=== PATIENT | male | born 1975 | race Hispanic/Latino ===

== ENCOUNTER → 2024-02-01 | Outpatient (CLI) | payer OTHER ==
[2024-02-01 14:32] LABS: BASOPHILS # (AUTO) 0.03 K/uL (0.00-0.20); BASOPHILS % (AUTO) 0.5 % (0.0-5.0); EOSINOPHILS # (AUTO) 0.25 K/uL (0.00-0.70); EOSINOPHILS % (AUTO) 4.4 % (0.0-8.0); IMMATURE GRANULOCYTE ABSOLUTE 0.02 K/uL (0-1); LYMPHOCYTES # (AUTO) 1.8 K/uL (1.0-4.8); LYMPHOCYTES % (AUTO) 31.3 % (21.0-51.0); MEAN CORPUSCULAR HEMOGLOBIN 28.1 pg (27.0-33.0); MEAN CORPUSCULAR HGB CONC 32.6 g/dL (32.0-36.0); MEAN CORPUSCULAR VOLUME 86.2 fL (79-99); MONOCYTES # (AUTO) 0.4 K/uL (0.1-1.0); MONOCYTES % (AUTO) 7.2 % (3.0-13.0); NEUTROPHILS # (AUTO) 3.2 K/uL (1.8-7.7); NEUTROPHILS % (AUTO) 56.2 % (40.0-77.0); PLATELET COUNT (AUTO) 284 K/uL (130-400); RED BLOOD CELL COUNT(AUTO) 5.45 MIL/uL (4.50-6.20); RED CELL DISTRIBUTION WIDTH 13.2 % (11.0-15.5); WHITE BLOOD COUNT (AUTO) 5.7 K/uL (4.8-10.8)
[2024-02-01 14:49] LABS: INR 0.97 (0.85-1.15); PROTHROMBIN TIME 10.5 SEC (9.6-11.6)
[2024-02-01 14:50] LABS: PARTIAL THROMBOPLASTIN TIME 32.5 SEC (26.3-35.5)
[2024-02-01 15:04] LABS: ALBUMIN 3.8 g/dL (3.5-5.0); BILIRUBIN,TOTAL 0.9 mg/dL (0.2-1.0); CREATININE 1.2 mg/dL (0.5-1.3); POTASSIUM 4.4 mmol/L (3.5-5.1); TOTAL PROTEIN, SERUM 7.5 g/dL (6.0-8.3)
== END | disposition home or self-care (01) ==
LOC: LAB 13:52
PROVIDERS: ATTEND Internal Medicine
DX: C20 Malignant neoplasm of rectum (principal); R10.9 Unspecified abdominal pain
CPT/HCPCS: 36415; 80053; 82378; 85025; 85610; 85730

== ENCOUNTER → 2024-02-05 | Outpatient (CLI) | payer MEDICAID, OTHER ==
[~2024-02-05] MED LIST: IOHEXOL 350 MG/ML 100ML INFUS..BTL IV ONE
--- NOTE | 2024-02-05 10:38 | HMCIMG ---
CT CHEST/ABD/PELV W/CONRAST HISTORY: Rectal cancer COMPARISON: None TECHNIQUE: Multiple sequential axial images of the chest were obtained from the thoracic inlet through upper abdomen. Patient was given 100 cc of Omnipaque through intravenous route. FINDINGS: There is no evidence of pulmonary nodule or parenchymal disease. COPD changes are seen. No pleural effusion or pericardial effusion is seen. There is no evidence of pneumothorax. There are normal size mediastinal and hilar lymph nodes. The heart is not enlarged. Degenerative changes of the thoracolumbar spine are present. There is no evidence of adrenal nodule. IMPRESSION: 1. No evidence of pulmonary nodule or effusion is seen. CT CHEST/ABD/PELV W/CONRAST HISTORY: No additional history given. COMPARISON: None TECHNIQUE: Multiple sequential axial images of the abdomen and pelvis were obtained from the dome of the diaphragm through symphysis pubis. Patient was given contrast along with the CT chest study through intravenous route. Oral contrast was given. FINDINGS: Liver measures 16 cm. The liver, spleen, adrenal glands and pancreas are unremarkable. There is no evidence of hydronephrosis bilaterally. No evidence of renal stone is seen. Fecal material is seen in the colon. There are normal size retroperitoneal and mesenteric lymph nodes. No ascites is seen. No CT evidence of acute appendicitis is seen. No bowel obstruction is seen. Clinical correlation is recommended. There is left anterior rectal wall thickening measuring 12 mm may be related to neoplastic process. There is also rectosigmoid colon wall fullness. Pelvic sidewalls are symmetric bilaterally. Bladder is poorly distended. IMPRESSION: 1. There is left and anterior rectal wall thickening may be related to mass lesion and clinical correlation is recommended. There is also fullness noted of the rectosigmoid colon wall. There is no evidence of adenopathy or ascites. No bowel obstruction seen. CT was performed with one or more following dose reduction techniques: automated exposure control, adjustment of the mA and kv according to patient's size, or use of a iterative reconstruction technique.
== END | disposition home or self-care (01) ==
LOC: RAH 09:13
PROVIDERS: ATTEND Internal Medicine
DX: C20 Malignant neoplasm of rectum (principal); J44.9 Chronic obstructive pulmonary disease, unspecified; M47.815 Spondylosis without myelopathy or radiculopathy, thoracolumbar region
CPT/HCPCS: 71260; 74177; Q9967

== ENCOUNTER → 2024-03-10 | Outpatient (CLI) | payer OTHER ==
[~2024-03-10] MED LIST changes: +GADOTERATE MEGLUMINE 10 MMOL/20 ML VIAL IV ONE; -IOHEXOL 350 MG/ML 100ML INFUS..BTL IV ONE
--- NOTE | 2024-03-10 13:20 | HMCIMG ---
MR PELVIS W/WO CON REASON: C20 Malignant neoplasm of rectum COMPARISON: None TECHNIQUE: Routine imaging protocol was performed from iliac crests to the perineum. Images are also obtained pre- and gadolinium contrast infusion, 17 cc Clariscan IV.. FINDINGS: There is focal thickening of the anterior and left lateral wall of the rectum. This measures up to 12 mm. Peripheral margins of the rectum appear well-defined. There is no evidence of transmural extension. There is no pelvic lymphadenopathy. Remainder of the colon appears unremarkable. Prostate measures 4.3 x 3.2 cm axial dimension. Seminal vesicles are symmetrical. Urinary bladder appears unremarkable. Remaining pelvic soft tissues appear normal. There are no focal osseous lesions. Surrounding soft tissues appear IMPRESSION: 1. Moderate wall thickening in the rectum anterior and left lateral side, measuring up to 12 mm. 2. No evidence of intraventricular extension, no evidence of pelvic lymphadenopathy, the remainder of exam is unremarkable.
== END | disposition home or self-care (01) ==
LOC: RAH 10:57
PROVIDERS: ATTEND Surgery Surgical Oncology
DX: C20 Malignant neoplasm of rectum (principal); K62.89 Other specified diseases of anus and rectum
CPT/HCPCS: 72197; A9575

== ENCOUNTER 2024-07-05 20:42 | Emergency (ER) | payer OTHER ==
[~2024-07-05] VITALS: Ht 172.7 cm; Wt 77.1 kg
--- NOTE | 2024-07-05 21:30 | ERN ---
General Chief Complaint: Other Problems Stated Complaint: CHEMO PUMP ISSUE BLEEDING Time Seen by MD: 20:51 History of Present Illness Initial Comments Patient is a 48-year-old male with a history of colon cancer who is doing chemotherapy with a home infusion pump. Earlier today something caught on the tubing it disconnected and part of the tubing dragged on the ground. He comes to the emergency room to fix/clean the tubing associated with his pump. There is blood in the pump tubing leading up to the valve from the pump. Allergies: Coded Allergies: No Known Allergies (Unverified Allergy, Unknown, 07/05/24) Past Medical History Past Medical History: Other Medical History Other: ST 3 COLON CANCER Past Surgical History: None ROS Dictation No shortness of breath no chest pain no bleeding from the port site Physical Exam Physical Exam Dictation Patient is calm alert oriented. Lungs are clear to auscultation bilaterally. Heart is normal with possibly a 1/6 systolic murmur; however, I would defer to another physician's exam as to whether or not the systolic murmur is present or not. MDM The pump is intact the to bleeding from the pump to the one-way valve is intact. I removed the needle in the port. The tip of the needle was intact. There was no bleeding in the skin surrounding the port, no erythema no swelling. The pump tubing was cleaned with alcohol. We obtained a chest x-ray to rule out a pneumothorax. Chest x-ray shows no pneumothorax it also shows that the tubing f rom the port is in a good position at the SVC right atrial junction and the tubing looks intact and connected to the pump. Patient is stable for discharge. He will see his oncologist on Sunday. ED Course Orders Procedure Category Date Status Time Chest 1vw RAD 07/05/24 Taken 20:59 Vital Signs Date Time Temp Pulse Resp B/P (MAP) Pulse Ox O2 Delivery O2 Flow Rate FiO2 07/05/24 20:59 98.8 78 20 132/68 98 Room Air* 0 21 07/05/24 20:42 98.4 86 16 135/76 100 Room Air DX & DISP Disposition: Discharge Departure Impression: Primary Impression: Encounter for care related to Port-a-Cath Condition: Stable Referrals: BRYANT MULLEN MD (PCP) CODY SMITH MD Jul 05, 2024 21:30
--- NOTE | 2024-07-05 21:32 | HMCIMG ---
CHEST 1VW CLINICAL HISTORY: PORT A CATH PLACEMENT COMPARISON: CT scan 02/05/2024 TECHNIQUE: Single view of the chest was obtained. FINDINGS: Lungs are clear. Cardiac size unremarkable. The bony structures are within normal limits. There is a left chest port with tip overlying superior vena cava. IMPRESSION: Chest port catheter tip in superior vena cava.
[2024-07-05 21:44] VITALS: BP 128/61; PULSE 71; RESP 18; TEMP 98; O2SAT 98
--- NOTE | 2024-07-05 21:46 | NUR ---
PATIENT ARRIVED WITH PORT A CATH INFUSION THAT HAD COME DISCONNECTED AND BECOME POSSIBLY CONTAMINATED. PORT HAD BEEN CLAMPED BY PATIENT IMMEDIATELY UPON NOTICING THE PUMP HAD COME DISCONNECTED. PHAN NEEDLE WAS REMOVED BY ER PHYSICIAN AND PATIENT WAS CLEANED AND DRESSED WITH STERILE GAUZE.
== END 2024-07-05 21:49 | disposition home or self-care (01) ==
LOC: EDH 20:42
DX: Z45.2 Encounter for adjustment and management of vascular access device (principal)
CPT/HCPCS: 71045; 99283

== ENCOUNTER → 2024-09-03 | Outpatient (CLI) | payer OTHER ==
--- NOTE | 2024-09-03 16:31 | HMCIMG ---
MR PELVIS W/WO CON REASON: C20 Malignant neoplasm of rectum COMPARISON: 03/10/2024 TECHNIQUE: High-resolution images are obtained in the pelvis with attention to the rectosigmoid colon. Axial, sagittal and coronal sequences were acquired. Images are also obtained pre and post gadolinium contrast infusion, 60 cc Clariscan IV. FINDINGS: Images exam showed asymmetric wall thickening anterior and left lateral side of the rectum. This appearance is less evident on the current exam, there is only minimal wall thickening remaining. There are no new focal masses. There is no evidence of transmural extension. Prostate appears unremarkable. Urinary bladder appears normal. There is no pelvic lymphadenopathy. There are no focal fluid collections. There is no free fluid. There are no focal osseous lesions. Bones and muscles appear unremarkable. IMPRESSION: 1. Near-complete resolution of wall thickening in the anterior left lateral rectal wall. 2. No new focal mass identified, exam remains otherwise unremarkable.
== END | disposition home or self-care (01) ==
LOC: RAH 10:34
PROVIDERS: ATTEND Surgery Surgical Oncology
DX: C20 Malignant neoplasm of rectum (principal)
CPT/HCPCS: 72197; A9575

== ENCOUNTER 2024-09-18 23:35 | Emergency (ER) | payer OTHER ==
[~2024-09-18] VITALS: Ht 172.7 cm; Wt 81.2 kg
[2024-09-19 01:21] LABS: BASOPHILS # (AUTO) 0.02 K/uL (0.00-0.20); BASOPHILS % (AUTO) 0.5 % (0.0-5.0); EOSINOPHILS # (AUTO) 0.08 K/uL (0.00-0.70); EOSINOPHILS % (AUTO) 2.1 % (0.0-8.0); HEMATOCRIT 37.9 % (42-54); IMMATURE GRANULOCYTE ABSOLUTE 0.02 K/uL (0-1); LYMPHOCYTES # (AUTO) 0.9 K/uL (1.0-4.8); MEAN CORPUSCULAR HEMOGLOBIN 30.9 pg (27.0-33.0); MEAN CORPUSCULAR HGB CONC 35.1 g/dL (32.0-36.0); MEAN CORPUSCULAR VOLUME 87.9 fL (79-99); MONOCYTES # (AUTO) 0.5 K/uL (0.1-1.0); MONOCYTES % (AUTO) 12.2 % (3.0-13.0); NEUTROPHILS # (AUTO) 2.4 K/uL (1.8-7.7); NEUTROPHILS % (AUTO) 62.7 % (40.0-77.0); PLATELET COUNT (AUTO) 164 K/uL (130-400); RED BLOOD CELL COUNT(AUTO) 4.31 MIL/uL (4.50-6.20); RED CELL DISTRIBUTION WIDTH 12.9 % (11.0-15.5); WHITE BLOOD COUNT (AUTO) 3.9 K/uL (4.8-10.8)
[2024-09-19 01:28] LABS: CREATININE 1.2 mg/dL (0.5-1.3); POTASSIUM 4.3 mmol/L (3.5-5.1)
--- NOTE | 2024-09-19 01:46 | ERN ---
General Chief Complaint: Hip Pain/Injury Stated Complaint: C/O PAIN TO LEFT HIP X 2 DAYS Time Seen by MD: 23:52 History of Present Illness Initial Comments 48-year-old male with a history of colon cancer who has been going through extensive chemotherapy and radiation therapy. He comes in with hip pain that radiates down his left lateral thigh, especially when he bears weight on his left lower extremity. The pain also gets worse the further he walks. He can walk a short distance in the end he just has to stop for the pain to subside before he can start walking again. The pain is all wheeze on the left lateral thigh. No other symptoms no nausea no vomiting no diarrhea no constipation and voiding fine. Allergies: Coded Allergies: No Known Allergies (Unverified Allergy, Unknown, 07/05/24) Past Medical History Past Medical History: Other Medical History Other: DX: COLORECTAL CA Past Surgical History: Other Constitutional: (-) chills, (-) diaphoresis, (-) fever, (-) malaise, (-) weakness, (-) other documentation EENTM: (-) eye pain, (-) blurred vision, (-) tearing, (-) double vision, (-) ear pain, (-) ear discharge, (-) nose pain, (-) nose congestion, (-) throat pain, (-) Throat swelling, (-) mouth pain, (-) tooth pain, (-) mouth swelling, (-) other documentation Respiratory: (-) cough, (-) orthopnea, (-) short of breath, (-) stridor, (-) wheezing, (-) other documentation Cardiovascular: (-) chest pain, (-) edema, (-) palpitations, (-) syncope, (-) dyspnea on exertion, (-) other documentation Gastrointestinal/Abdominal: (-) nausea, (-) vomiting, (-) diarrhea, (-) abd ominal pain, (-) abdominal distention, (-) constipation, (-) rectal bleeding, (- ) dark stool/melena, (-) other documentation Musculoskeletal: (-) Neck pain, (-) back pain, (-) Flank Pain, (-) joint pain, (-) joint swelling, (-) muscle pain, (-) muscle stiffness, (-) gout, (-) other documentation Skin: (-) laceration, (-) contusion, (-) abrasion, (-) abscess, (-) rash, (-) change in color, (-) change in hair, (-) change in nails, (-) diaphoresis, (-) dryness, (-) other documentation Neuro: (-) altered mental status, (-) headache, (-) syncope, (-) paralysis, (-) numbness, (-) seizure, (-) pre-existing deficit, (-) tremors, (-) weakness, (-) dizziness, (-) slurred speech, (-) vertigo, (-) other documentation Physical Exam General Appearance: (+) mild distress Orientation: (+) alert, (+) oriented x 3 Head/Face Trauma: No Eye: bilateral eye normal inspection, bilateral eye PERRL, bilateral eye EOMI Ear, Nose, Throat: (+) hearing grossly normal, (+) normal ENT inspection, (+) moist mucous membraine Neck: (+) normal inspection, (+) supple, (+) full range of motion, (+) no JVD Respiratory: (+) chest non-tender, (+) lungs clear, (+) well ventilated Heart: (+) regular, (+) no gallop Vascular: (+) no edema, (+) normal peripheral pulse Gastrointestinal: (+) soft, (+) non-tender, (+) bowel sound present Extremities: (+) normal range of motion, (+) non-tender, (+) normal inspection, (+) no pedal edema, (+) no calf tenderness, (+) normal capillary refill Extremities Comment I can reproduce the patient's pain simply by pushing very hard against his left foot forcing his thigh up into the hip joint. Results Laboratory and Microbiology Lab and Micro Result Laboratory Tests Test 09/19/24 01:18 White Blood Count 3.9 K/uL (4.8-10.8) L Red Blood Count 4.31 MIL/uL (4.50-6.20) L Hemoglobin 13.3 g/dL (14.0-18.0) L Hematocrit 37.9 % (42-54) L Mean Corpuscular Volume 87.9 fL (79-99) Mean Corpuscular Hemoglobin 30.9 pg (27.0-33.0) Mean Corpuscular Hemoglobin Concent 35.1 g/dL (32.0-36.0) Red Cell Distribution Width 12.9 % (11.0-15.5) Platelet Count 164 K/uL (130-400) Mean Platelet Volume 8.0 fL (7.5-10.5) Immature Granulocyte % (Auto) 0.5 % (0-1) Neutrophils (%) (Auto) 62.7 % (40.0-77.0) Lymphocytes (%) (Auto) 22.0 % (21.0-51.0) Monocytes (%) (Auto) 12.2 % (3.0-13.0) Eosinophils (%) (Auto) 2.1 % (0.0-8.0) Basophils (%) (Auto) 0.5 % (0.0-5.0) Neutrophils # (Auto) 2.4 K/uL (1.8-7.7) Lymphocytes # (Auto) 0.9 K/uL (1.0-4.8) L Monocytes # (Auto) 0.5 K/uL (0.1-1.0) Eosinophils # (Auto) 0.08 K/uL (0.00-0.70) Basophils # (Auto) 0.02 K/uL (0.00-0.20) Absolute Immature Granulocyte (auto 0.02 K/uL (0-1) Nucleated Red Blood Cells 0.0 % (0.0-0.19) Sodium Level 141 mmol/L (136-145) Potassium Level 4.3 mmol/L (3.5-5.1) Chloride Level 106 mmol/L (101-111) Carbon Dioxide Level 29 mmol/L (21-32) Blood Urea Nitrogen 24 mg/dL (7-18) H Creatinine 1.2 mg/dL (0.5-1.3) Glomerular Filtration Rate Calc 74 mL/min (>90) Random Glucose 93 mg/dL (70-105) Total Calcium 8.3 mg/dL (8.5-10.1) L MDM MDM: Differential diagnosis: My suspicion is nerve root pain from the L2-L3 region. Whether it is from the colon cancer or the chemo or scarring afterwards I do not know. There could be a simple fracture there or a spinal cord compression fracture. There could also be arterial insufficiency given the patient's claudication like symptoms. Rationale: Tests considered and ordered secondary to shared decision making include: Previous outside records reviewed: Old ER visits. Risk of complication and/or morbidity or mortality of patient management: None Medications-Per medication reconciliation Need for hospitalization: Patient does meet criteria for hospitalization. Need for emergency major/minor surgery: No There are no social concerns with this patient. Prescription drug management Prescriptions will include symptomatic care Patient's prior external medical records from other ER visits were reviewed by me as indicated. Prior testing and results from previous visits were reviewed. Prior tests were taken into account with medical decision making and resource utilization, independent historian/historians were used to obtain complete medical history. I independently interpreted the test that were performed, results were reviewed by me and considered findings on radiology if ordered. I will order a CBC UA BNP and an iron level. That a CT scan of his lumbar sacral region. CT scan of the lumbar sacral swelling does not show any obvious spinal stenosis vertebral fractures or subluxations. The pelvic bones are intact no fractures. IV contrast does seem to go into the left thigh I see no blockages in the supe rficial femoral or deep femoral artery circulation. The patient is already taking gabapentin 300 mg q.h.s.. I recommend going to 300 mg b.i.d.. I discussed the side effects of gabapentin with the patient. Next step would be to see a neurologist to try and sort out cause of the patient's pain. ED Course Orders Procedure Category Date Status Time Cbc With Differential LAB 09/19/24 Complete 01:07 Basic Metabolic Panel LAB 09/19/24 Complete 01:07 Ct Abdomen/Pelvis CT 09/19/24 Taken W/Wo Contras 01:07 Iohexol (Omnipaque) PHA 09/19/24 Complete 01:50 Current Medications Medications (Trade) Dose Ordered Sig/Zoila Route PRN Reason Start Time Stop Time Status Last Admin Dose Admin Iohexol (Omnipaque) 35,000 mg STK-MED ONCE IV 09/19/24 01:50 09/19/24 01:54 DC Vital Signs Date Time Temp Pulse Resp B/P (MAP) Pulse Ox O2 Delivery O2 Flow Rate FiO2 09/19/24 00:10 97.0 64 17 119/66 98 Room Air* 0 21 09/18/24 23:37 97.5 66 18 107/61 97 Room Air DX & DISP Disposition: Discharge Departure Impression: Primary Impression: Left thigh pain Additional Impression: Colon cancer Condition: Stable Scripts Pregabalin (Lyrica) 25 Mg Cap 1 CAP PO BID for 30 Days, #60 CAP 0 Refills Prov: CODY SMITH MD 09/19/24 Additional Instructions: I do not know the cause of your left lateral thigh pain. There was nothing obvious on the CT scan suggesting nerve root compression. The circulation to your left eye seems adequate so it is hard to blame the symptoms on arterial insufficiency, but that could be a cause. I do not see any fractures in the pelvic bones or the neck of the femur that could cause these symptoms. We talked about increasing your gabapentin dosage to b.i.d. I know it is frustrating that we were unable to figure out the cause of your pain. I recommend following up with a neurologist and pain specialist. I have also sent a prescription to your pharmacy for Lyrica as an alternative to gabapentin for nerve pain. Referrals: BRYANT MULLEN MD (PCP) CODY SMITH MD Sep 19, 2024 01:46
[2024-09-19] MEDS ORDERED: IOHEXOL 350 MG/ML 100ML INFUS..BTL IV ONE (01:50)
[2024-09-19] MEDS ORDERED: PREG25 PO (03:45)
[2024-09-19 04:19] VITALS: BP 123/70; PULSE 59; RESP 15; TEMP 97.4; O2SAT 100
--- NOTE | 2024-09-19 04:20 | NUR ---
AMBULATION ASSESSMENT UPON DISCHARGE PT AMBULATED INDEPENDENTLY WITH STEADY GAIT AND GOOD BALANCE. NO ASSISTIVE DEVICES REQUIRED. PT REPORTS NO PAIN.
--- NOTE | 2024-09-19 08:38 | HMCIMG ---
CT ABDOMEN/PELVIS W/WO CONTRAS HISTORY: Pain COMPARISON: 02/05/2024 TECHNIQUE: Multiple sequential axial images of the abdomen and pelvis were obtained from the dome of the diaphragm through symphysis pubis. Patient was given 100 cc of Omnipaque through intravenous route. Oral contrast was not given. FINDINGS: No pleural effusion is seen bilaterally. There is no evidence of parenchymal disease or pulmonary nodule of the visualized lower lungs. Degenerative changes of the thoracolumbar spine are present. The heart is not enlarged. The liver, spleen, adrenal glands and pancreas are unremarkable. There is no evidence of hydronephrosis bilaterally. No evidence of renal stone is seen. Fecal material is seen in the colon. There are normal size retroperitoneal and mesenteric lymph nodes. Trace ascites is seen. No CT evidence of acute appendicitis is seen. Pelvic sidewalls are symmetric bilaterally. Bladder is moderately distended. There is fat stranding adjacent to the bladder may be related to cystitis. Urinalysis correlation with helpful. IMPRESSION: 1. Bladder is moderately distended. There is fat stranding adjacent to the bladder may be related to cystitis. Urinalysis correlation with helpful. CT was performed with one or more following dose reduction techniques: automated exposure control, adjustment of the mA and kv according to patient's size, or use of a iterative reconstruction technique.
== END 2024-09-19 04:23 | disposition home or self-care (01) ==
LOC: EDH 23:35
DX: M79.652 Pain in left thigh (principal); C18.9 Malignant neoplasm of colon, unspecified
CPT/HCPCS: 99285; 80048; 85025; 36415; 74178; Q9967